=== PATIENT | female | born 1980 | race Caucasian/White ===

== ENCOUNTER → 2016-05-08 | Outpatient (CLI) | payer OTHER | LOC: FIMAGING 07:44 | PROVIDERS: ATTEND Obstetrics & Gynecology | DX: O09.522 Supervision of elderly multigravida, second trimester (principal); Z3A.20 20 weeks gestation of pregnancy ==

== ENCOUNTER → 2016-12-01 | Outpatient (CLI) | payer OTHER | LOC: BRMIMAGING 09:19 | PROVIDERS: ATTEND Obstetrics & Gynecology | DX: N63.20 Unspecified lump in the left breast, unspecified quadrant (principal) | CPT/HCPCS: 76641-PO ==

== ENCOUNTER → 2016-12-13 | Outpatient (CLI) | payer OTHER ==
[~2016-12-13] MED LIST: BUPIVACAINE 0.5% 10 ML SDV ONE; LIDOCAINE 1% 300 MG/30 ML SDV ONE; THROMBIN (BOVINE) 5,000 UNIT VIAL TP ONE
== END ==
LOC: FIMAGING 07:05
PROVIDERS: ATTEND Obstetrics & Gynecology
PROC: 0HBU3ZX Excision of Left Breast, Percutaneous Approach, Diagnostic (ICD-10-PCS; principal; 2016-12-13)
DX: N63.20 Unspecified lump in the left breast, unspecified quadrant (principal)